=== PATIENT | male | born 1965 | race Caucasian/White ===

== ENCOUNTER → 2016-06-15 | Outpatient (CLI) | payer OTHER ==
--- NOTE | ~2016-06-15 | MR17 ---
[facility] A Service of [facility] & [facility] RADIOLOGY TEXT RESULTS PATIENT: NOEMY SANTIAGO LOCATION: [facility] : 67 UNIT #: [id number] AGE: [address]: Addy Brown II, MD SEX: M ORDER DR: [id number] [facility] [address] [place], [place] [address] [id number] O MR#: [id number] #: [id number] NAME: NOEMY SANTIAGO : 1965 SEX: M STUDY DATE/TIME: 06/15/2016 12:48 UNIT: [facility] ROOM: STUDY DESCRIPTION: MR Brain WWo Contrast Attending Physician: Addy Brown II., M.D. Referring Physician: Addy Brown II., M.D. Ordering Physician: Addy Brown II., M.D. Primary Care Physician: Jesus Gallego M.D. MRI CENTER REPORT This report is preliminary unless electronic signature is present. EXAM MRI of the brain with without HISTORY Pituitary adenoma brain with pituitary protocol COMMENT MRI of the brain was performed prior to and following intravenous administration of 20 mL of Magnevist. MRI of the sella also performed prior to and following contrast administration. Unfortunately there is some motion limitation of the study. There is no comparison available at this institution. Evaluation of whole brain imaging shows no abnormally restricted diffusion. There is no extraaxial fluid collection. The major intracranial flow voids are maintained. The mastoid air cells are clear. The ventricles are normal in size and configuration. The nowak-white junction is age-appropriate. 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 It is described on the prior report and it is an incidental finding. Evaluation of the sella shows normal concave upper margin of the gland. No mass effect is appreciated on the optic chiasm cisternal optic nerves or optic tracts. There is a subtle heterogeneity of enhancement of the anterior portion of the gland with contrast administration. This is an equivocal finding. This could be normal gland with some heterogeneity or possibly a subtle area of pituitary microadenoma. Please correlate with the endocrine findings. Regardless there is no associated mass effect associated with this area of heterogeneous mild hypoenhancement. The infundibulum is not deviated. Cavernous sinuses are uninvolved. The area of possible heterogeneous hypoenhancement in the anterior portion of the gland measures about 6 mm SI dimension 8 mm AP dimension and cannot be delineated discretely on the coronal imaging. Post-contrast imaging of the whole brain shows no additional possible area of pathologic intracranial enhancement. [facility] A Service of [facility] RADIOLOGY TEXT RESULTS PATIENT: NOEMY SANTIAGO LOCATION: [facility] : 67 UNIT #: [id number] AGE: [address]: Addy Brown II, MD SEX: M ORDER DR: IMPRESSION 1. There is some mild heterogeneity of the enhancement pattern of the pituitary gland at the anterior portion of the sella. There is no appreciable mass effect. This is nonspecific. It is possible this is normal gland with some heterogeneity of enhancement or it is possible this is a subtle area of microadenoma. In any case the upper margin of the gland is still normally concave and there is no mass effect upon adjacent structures. Please correlate with the endocrine findings for any evidence of pituitary microadenoma. 2. Otherwise essentially unremarkable MRI of the brain with and without contrast for age group. 3. Unfortunately the study is somewhat motion limited particularly the high-resolution imaging of the sella. I do not have access to any comparison outside films. Dictated by... Hayley Ellison M.D. THIS IS AN ELECTRONICALLY VERIFIED REPORT Hayley Ellison M.D. at 06/15/2016 5:44 PM ALLA/mukesh TD: 06/15/2016 17:12 JOB #: [id number] MRI CENTER REPORT Page 1 of 1 COPY
[2016-06-15 16:31] LABS: POC - CREATININE 0.89 mg/dL (0.64-1.27); POC - GFR >60.0 mL/min (>60)
== END | disposition home or self-care (01) ==
LOC: CMRI 12:04
PROVIDERS: Psychiatry & Neurology Neurology
DX: D35.2 Benign neoplasm of pituitary gland (principal)
CPT/HCPCS: 70553; 82565; A9577